=== PATIENT | male | born 1995 | race Two or more races ===

== ENCOUNTER 2024-12-08 09:04 | Emergency (ER) | payer OTHER, SELFPAY ==
--- OUTSIDE RECORDS SUMMARY | 2024-12-08 09:06 | XMS_ITS | Clinical Summary ---
Author Organization [facility] Address [address] [place] [id number] Care Team Providers Care It Field Technician Name Role Phone No Ref-Primary, Physician Primary Care Provider Allergies No known active allergies Medications ibuprofen (ADVIL/MOTRIN) 200 MG tablet Take 200 mg by mouth every 4 hours as needed for mild pain Active amphetamine-dex troamphetamine (ADDERALL XR) 20 MG 24 hr capsule TAKE 2 CAPSULES BY MOUTH EVERY DAY 08/03/2020 Active Immunizations Immunization Administration Dates Next Due BCG-Tuberculosis 01/17/1995 COVID-19 Monovalent 18+ (Moderna) 11/08/2020,01/2021 DTaP, Unspecified 12/01/2011, 6,02/05/1995,11/08,1994 HepA, Unspecified 03/22/2007,07/07/2000 HepB, Unspecified 07/29/2002,09/09/2001,07/06/19 01 Influenza Vaccine >6 months,quad, PF 05/15/2020 Influenza Vaccine, 6+MO IM (QUADRIVALENT W/PRESERVATIVES) 06/05/2019 MMR (MMRII) 07/07/2001,05/01/1999 Meningococcal ACWY (Menactra ) 12/09/2011 Poliovirus, inactivated (IPV) 08/28/2011 ,12/27/1997,08/29/1995,02/05,1994 Td,adult,historic,unspecified 03/22/2007 Varicella (Varivax) 12/09/2011,06/06/2004 Social History Tobacco Use Types Packs/Day Years Used Date Smoking Tobacco: Never Smokeless Tobacco: Never Adolescent Education Answer Date Record ed Getting School Help Needed Not on file 03/27 Sex and Gender Information Value Date Recorded Sex Assigned at Not on file Legal Sex Male 6:[address] Gender Identity Not on file Sexual Orientation Not on file Last Filed Vital Signs Vital Sign Reading Time Taken Comments Blood Pressure 118/60 12/21/2020 12:01 PM CDT Pulse 75 12/21/2020 12:01 PM CDT Temperature 37.1 C (98.7 F) 12/21/2020 12:01 PM CDT Respiratory Rate 14 08/19/2019 7:[address] Oxygen Saturation 99% 12/21/2020 12:01 PM CDT Inhaled Oxygen Concentration - - Weight 81.6 kg (180 lb) 12/21/2020 12:01 PM CDT Height 180.3 cm (5' 11) 08/19/2019 7:[address] Body Mass Index 25.1 08/19/2019 7:[address] Plan of Treatment Health Maintenance Due Date Last Done Comments ADVANCE CARE PLANNING 1994 ANNUAL REVIEW OF HM ORDERS 1994 YEARLY PREVENTIVE VISIT 1997 DTAP/TDAP/TD VACCINE (7 - Tdap) 11/30/2021 12/01/2011, 03/22/2007, 01/01/1996, Additional history exists COVID-19 VACCINE ( season) 2024 11/08/2020, 10/10/2020 PHQ-2 (once per calendar year) 2024 INFLUENZA VACCINE (Season Ended) 2025 05/15/2020, 06/05/2019 ZOSTER VACCINE (1 of 2) 2044 HEPATITIS B VACCINE Completed 07/29/2002, 09/09/2001, 07/06/2000 MENINGITIS VACCINE Completed 12/09/2011 HEPATITIS C SCREENING Completed 05/15/2020 HIV SCREENING Completed 05/15/2020 HPV VACCINE Aged Out No longer eligi ble based on patient's age to complete this topic PNEUMOCOCCAL VACCINE: PEDIATRICS (0 to 5 YEARS) AND AT-RISK PATIENTS (6 to 49 YEARS) Aged Out No longer eligible based on patient's age to complete this topic Insurance MED[employer] CHOICE Care Teams It Field Technician Relationship Specialty Start Date End Date No Ref-Primary, Physician PCP - General 08/19/19
--- OUTSIDE RECORDS SUMMARY | 2024-12-08 09:06 | XMS_ITS | Encounter Summary ---
Author Organization [facility] Address [address] [place] [address] Care Team Providers Care Gut Snatcher Name Role Phone No Primary/Referring, Phy Primary Care Provider Unavailable Encounter Details Date Type Department Care Team (Late st Contact Info) Description 05/03/2018 Correspondence None No Primary/Referring, Phy DME EQUIPMENT PROOF OF DELIVERY Social History Tobacco Use Types Packs/Day Years Used Date Smoking Tobacco: Never Smokeless Tobacco: Never Alcohol Use Standard Drinks/Week Comments Yes 0 (1 standard drink = 0.6 oz pur e alcohol) socially Sex and Gender Information Value Date Recorded Sex Assigned at Not on file Legal Sex Male 10:42 AM CDT Gender Identity Not on file Sexual Orientation Not on file documented as of this encounter Plan of Treatment Not on file documented as of this encounter Visit Diagnoses Not on filedocumented in this encounter Care Teams Gut Snatcher Relationship Specialty Start Date End Date No Primary/Referring, Phy PCP - General 08/25/18 documented as of this encounter
--- OUTSIDE RECORDS SUMMARY | 2024-12-08 09:06 | XMS_ITS | Clinical Summary ---
Author Organization [facility] Address [address] [place] [address] Care Team Providers Care Stonemason Apprentice Name Role Phone No Primary/Referring, Phy Primary Care Provider Unavailable Source Comments You are receiving this document as you are listed as the primary care provider,follow-up provider, or the patient has been referred to you for consultation.This is in compliance with the Medicare and[facility] EHR Incentive Program,which states Providers who transition their patient to another setting of careor provider of care or refers their patient to another provider of care shouldprovide summary care record for each transition of care or referral. [facility] Allergies No known active allergies Medications acetaminophen (TYLENOL) 500 MG tablet Take 1 Tablet by mouth every 4 hours. Take every 4 hours for 3 days, then as needed. 100 Tablet 08/31/2018 Active ibuprofen (MOTRIN) 200 MG tablet Take 3 Tablets by mouth every 6 hours. Take every 6 hours for 3 days, then as needed. 100 Tablet 08/31/2018 Active Social History Tobacco Use Types Packs/Day Years [...] Sign Reading Time Taken Comments Blood Pressure 123/74 08/31/2018 2:20 PM MEASURING MACHINE OPERATOR Pulse 74 08/31/2018 2:20 PM MEASURING MACHINE OPERATOR Temperature 36.9 C (98.5 F) 08/31/2018 2:20 PM MEASURING MACHINE OPERATOR Respiratory Rate 16 08/31/2018 2:20 PM MEASURING MACHINE OPERATOR Oxygen Saturation 96% 08/31/2018 2:20 PM MEASURING MACHINE OPERATOR Inhaled Oxygen Concentration - - Weight 85.3 kg (188 lb) 08/31/2018 8:35 AM MEASURING MACHINE OPERATOR Height 177.8 cm (5' 10) 08/31/2018 8:35 AM MEASURING MACHINE OPERATOR Body Mass Index 26.98 08/31/2018 8:35 AM MEASURING MACHINE OPERATOR Plan of Treatment Health Maintenance Due Date Last Done Comments Hep C Screening (Preventive Services) 1994 Tuberculosis Screening 1994 HIV Screening (Preventive Services) 2010 Adult Preventive Visit 2012 HepB Vaccine (1) 2013 DTaP/Tdap/Td Vaccine (7 - Tdap) 11/30/2021 12/01/2011, 03/22/2007, 01/01/1996, Additional history exists COVID-19 Vaccine ( season) 2024 11/08/2020, 10/10/2020 Influenza Vaccine (Season Ended) 2025 05/15/2020, 06/05/2019 Zoster/Shingles Vaccine (1 of 2) 2044 HepA Vaccine Completed 03/22/2007, 07/07/2000 IPV (Polio) Vaccine Completed 08/28/2011, 12/27/1997, 08/29/1995, Additional history exists MCV4 Vaccine Completed 12/09/2011 HPV Vaccine Aged Out No longer eligi ble based on patient's age to complete this topic Hib Vaccine Aged Out No longer eligi ble based on patient's age to complete this topic Meningococcal B Vaccine Aged Out No l onger eligible based on patient's age to complete this topic Pneumococcal Vaccine Aged Out No long er eligible based on patient's age to complete this topic Medical Devices Implanted Type Area Design Teacher Device Identifier Shelf Expiration Date Model / Serial / Lot Scr Joselyn Interfr Sheath 7.0x20 - [id number] Implanted:Qty: 1 on 08/31/2018 by Juan Jose Moya MD at [facility] Left: [employer] 03/05/2023 AR-[id number] / 0 / [id number] Stephanie Alves Interfr 8.0x20 F-Thrd - [id number] Implanted:Qty: 1 on 08/31/2018 by Juan Jose Moya MD at [facility] Left: [employer] 04/04/2023 AR-[id number] / 0 / [id number] Advance Directives * Full Code (Latest Code Status on File) Date Activated Date Inactivated Comments 08/31/2018 11:39 AM 08/31/2018 5:06 PM Full code i n effect for 30 days Care Teams Stonemason Apprentice Relationship Specialty Start Date End Date No Primary/Referring, Phy PCP - General 08/25/18
--- OUTSIDE RECORDS SUMMARY | 2024-12-08 09:06 | XMS_ITS | Encounter Summary ---
Author Organization [facility] Address [address] [place] [address] Care Team Providers Care Produce Assistant Name Role Phone No Primary/Referring, Rg Primary Care Provider Unavailable Encounter Details Date Type Department Care Team (Late st Contact Info) Description 05/25/2018 Correspondence [facility] Radiology [address] [place] [id number] Radiology, Provider MRI SAFETY SHEET AND COMPATIBILITY FORM Social History Tobacco Use Types Packs/Day Years [...] on filedocumented in this encounter Care Teams Produce Assistant Relationship Specialty Start Date End Date No Primary/ReferringRg PCP - General 08/25/18 documented as of this encounter
--- OUTSIDE RECORDS SUMMARY | 2024-12-08 09:06 | XMS_ITS | Encounter Summary ---
Author Organization [facility] Address [address] [place] [address] Care Team Providers Care Washing Tub Operator Name Role Phone No Primary/Referring, Phy Primary Care Provider Unavailable Encounter Details Date Type Department Care Team (Late st Contact Info) Description 05/03/2018 Correspondence None No Primary/Referring, Phy MEDICAL EQUIPMENT PROOF OF DELIVERY Social History Tobacco [...] on filedocumented in this encounter Care Teams Washing Tub Operator Relationship Specialty Start Date End Date No Primary/Referring, Phy PCP - General 08/25/18 documented as of this encounter
[2024-12-08 09:12] VITALS: BP 126/82; PULSE 91; RESP 18; TEMP 37.7; O2SAT 98; BMI 25.9
--- NOTE | 2024-12-08 09:16 | ED.GENADULT ---
HPI - General Adult General Time Seen by Provider: 09:16 Date Seen: 12/08/24 Chief complaint: Fever Stated complaint: urgent care sent him over here Time Seen by Provider: 12/08/24 09:06 Source: patient and RN notes reviewed Mode of arrival: ambulatory Limitations: no limitations History of Present Illness HPI narrative: This 29-year-old male was referred to the ER from urgent care for concern of fevers, chills, body aches, headache and nausea and vomiting beginning on Thursday. He states it started with a little sniffle, does not have any cough. He does smoke THC daily but has never had any symptoms like this. 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 He has had no travel. He did have a little diarrhea this morning. He really has not had any oral intake since Thursday. Urgent care noted that he had some palpable abdominal tenderness and referred him on here. He has been vomiting reportedly 10-15 times a day. He has had no prior abdominal surgeries, otherwise healthy. No alcohol use. He at the end did state that he has had significant sore throat with this. Patient is a heterosexual male without any concern of history of STIs. Related Data Previous Rx's ?Medication ?Instructions ?Recorded ondansetron 4 mg disintegrating 4 mg PO TID PRN nausea #10 tabs 12/08/24 tablet Allergies Allergy/AdvReac Type Severity Reaction Status Date / Time No Known Drug Allergies Allergy Verified 12/08/24 10:42 Review of Systems Status of ROS: Reports: 6 or more systems reviewed and unremarkable except as noted in History and below PFSH PFS Social History Smoking Status: Current every day smoker Do you use any of these nicotine containing products: Vaping Products How often do you have a drink containing alcohol: never AUDIT-C Alcohol total score: 0 Non-prescribed substance use: marijuana (any form) Exam Const: Vital Signs, click to edit/add: Vital Signs - 24 hr 12/08/24 09:12 12/08/24 09:31 12/08/24 11:07 Temperature 99.9 F H Pulse Rate [Pulse Oximeter] 91 87 Respiratory Rate 18 18 Blood Pressure [Ri ght Upper Arm] 126/82 118/82 Pulse Oximetry 98 95 97 Oxygen Delivery Me thod Room Air Room Air This 29-year-old male is alert, interactive, no apparent distress but looks like he does not feel well. Sclera clear, symmetrical facial function. Oropharynx dry mucosa, tonsils are about 1 to 2+, mild erythema but no exudates, still with good oral airway. Speech is normal. Neck supple, no palpable masses. Lungs are clear, good air entry, no wheezing or crackles, no tachypnea, no accessory muscle use. CV regular rate and rhythm, no murmur, normal S1-S2, no S3-S4. Abdomen is soft but he definitely has epigastric tenderness with some rebounding, no guarding, no palpable masses. Skin visualized without any rash. Documenting provider has reviewed patient's vital signs: yes Course Course ED Course: This patient certainly seems to have a constellation of symptoms suggestive of pattern of illness with considerations for influenza, strep, COVID being considered. Given his significant abdominal discomfort on examination, do think I would recommend CT scan with IV contrast. Will give him some IV fluids as he has not had good intake through this illness. Will also give him some Zofran. Will do full complement of labs as well. This really points to infectious etiology, certainly could be viral. Reevaluation(s) Time of Reevaluation #1: 10:33 Reevaluation #1: Patient's potassium is mildly low at 3.1, likely from reported GI losses from vomiting. Rest of his labs look reassuring pending C reactive protein. Awaiting CT report port from a Radiology. Will give patient some IV replacement of potassium. Time of Reevaluation #2: 11:01 Reevaluation #2: Patient is feeling a bit better after the IV fluids. Reviewed normal CT imaging of his pelvis. We reviewed his labs are all normal minus the potassium, reviewed likely GI losses from vomiting causing this. He is getting potassium supplementation. The IV potassium was bothering him some, slowing the infusion down has helped. We also reviewed that his CRP is significantly elevated. He was at the [place] on Thursday, did bring up possibility of tick exposure. They never found tick on him and did look when he started to develop fevers that night. Reviewed with him that it would be extremely unusual to have a tick exposure and develops symptoms of tick illness the same day. Time of Reevaluation #3: 12:42 Reevaluation #3: Have re-evaluated with patient. His headache is better, still has some sore throat but is able to swallow. He has some left-sided neck pain, it is along the border of the left trapezius muscle, hurts to turn his head to the left but otherwise can talk is chin, turn to the right without any difficulty. Seems to be an isolated muscle issue likely associated with viral etiology. Have reviewed his labs with him. We will see if we can get him a clinic recheck tomorrow. Have discussed with him that I think he has something infectious in seems to be pointing to viral at this point. We will send him with Bridget for symptom control but he should have a low threshold for re-evaluation. Vital Signs Vital signs: Initial Vital Signs Temperature 99.9 F H 12/08/24 09:12 Temperature Source Temporal Artery Scan 12/08/24 09:12 Pulse Rate 91 12/08/24 09:12 Respiratory Rate 18 12/08/24 09:12 Blood Pressure 126/82 12/08/24 09:12 Blood Pressure Mean 96 12/08/24 09:12 Pulse Oximetry 98 12/08/24 09:12 Oxygen Delivery Method Room Air 12/08/24 09:12 Vital Signs Temperature 99.9 F H 12/08/24 09:12 Pulse Rate 91 12/08/24 09:12 Respiratory Rate 18 12/08/24 09:12 Blood Pressure 126/82 12/08/24 09:12 Pulse Oximetry 98 12/08/24 09:12 Oxygen Delivery Method Room Air 12/08/24 09:12 Temperature 99.9 F H 12/08/24 09:12 Pulse Rate 87 12/08/24 11:07 Respiratory Rate 18 12/08/24 11:07 Blood Pressure 118/82 12/08/24 11:07 Pulse Oximetry 97 12/08/24 11:07 Oxygen Delivery Method Room Air 12/08/24 11:07 Medications Administered Medications: Discontinued Medications Generic Name Dose Route Start Last Admin Trade Name Freq PRN Reason Stop Dose Admin Sodium Chloride 1,000 mls @ 1,000 mls/hr 12/08/24 09:32 12/08/24 11:10 0.9 % Sodium Chloride 1000 Ml IV 12/08/24 10:31 Infused .Q1H VADIM Infusion Potassium Chloride 10 meq in 100 mls @ 100 mls/hr 12/08/24 10:45 12/08/24 13:36 Potassium Chloride IVPB 12/08/24 13:14 Infused Q90M VADIM Infusion Sodium Chloride 1,000 mls @ 500 mls/hr 12/08/24 11:21 12/08/24 13:35 0.9 % Sodium Chloride 1000 Ml IV 12/08/24 13:20 Infused .Q2H VADIM Infusion Ketorolac Tromethamine 15 mg 12/08/24 13:08 12/08/24 13:08 Ketorolac 15 Mg/Ml Inj IVP 12/08/24 13:09 15 mg ONCE ONE Administration Ondansetron HCl 4 mg 12/08/24 09:30 12/08/24 10:59 Ondansetron 2 Mg/Ml Inj IVP 12/08/24 09:31 4 mg ONCE ONE Administration Medical Decision Making Lab Data Labs: Lab Results 12/08/24 12/08/24 12/08/24 Range/Units 09:18 09:45 10:45 WBC 7.89 (4.50-11.00) K/uL RBC 5.51 (4.30-5.90) m/uL Hgb 15.7 (13.5-17.5) gm/dL Hct 44.8 (37.0-53.0) % MCV 81 (80-100) fL MCH 29 (26-34) pg MCHC 35 (32-36) gm/dL RDW Coeff of Jax 11.5 (11.5-15.5) % Plt Count 201 (140-440) K/uL Neut % (Auto) 77.2 H (42.0-72.0) % Lymph % (Auto) 9.3 L (20-44) % [place] % (Auto) 13.1 H (0.0-11.0) % Eos % (Auto) 0.0 (0.0-7.0) % Baso % (Auto) 0.1 (0.0-3.0) % Neut # (Auto) 6.10 (1.7-7.0) K/uL Lymph # (Auto) 0.70 L (0.90-2.90) K/uL [place] # (Auto) 1.00 H (0.00-0.90) K/UL Eos # (Auto) 0.00 (0.00-0.50) K/uL Baso # (Auto) 0.01 (0.00-0.30) K/uL Abs Immat Gran (auto) 0.02 (0.00-0.30) K/uL Imm/Tot Granulo (auto) 0.3 % Sodium 135 (135-149) mmol/L Potassium 3.1 L (3.6-5.1) mmol/L Chloride 97 (96-114) mmol/L Carbon Dioxide 25 (20-32) mmol/L Anion Gap 13 (7-15) mEq/L BUN 13 (5-24) mg/dL Creatinine 1.0 (0.5-1.5) mg/dL Estimated Creat Clear 115.04 Estimated GFR 104 ml/min Glucose 123 H (60-115) mg/dL Lactate 1.4 (0.5-1.9) mmol/L Calcium 9.0 (8.4-10.6) mg/dL Total Bilirubin 1.0 (0.1-1.5) mg/dL AST 32 (12-35) U/L ALT 45 (4-50) U/L Alkaline Phosphatase 91 (40-150) U/L C-Reactive Protein 12.6 H (0.5-1.0) mg/dL Total Protein 8.7 H (6.0-8.3) g/dL Albumin 4.8 (3.3-5.0) g/dL Lipase 73 (23-300) U/L Procalcitonin 0.13 (<0.50) ng/mL SARS-CoV-2 (PCR) Negative SARS-CoV-2 (Negative) Monoscreen Negative (Negative) Influenza Type A (PCR) Negative PCR FLU A (Negative) Influenza Type B (PCR) Negative PCR FLU B (Negative) RSV (PCR) Negative PCR RSV (Negative) Group A Strep DNA NOT DETECTED (Not Detectd) Lab Acknowledgement Test Added 12/08/24 Range/Units 11:00 WBC (4.50-11.00) K/uL RBC (4.30-5.90) m/uL Hgb (13.5-17.5) gm/dL Hct (37.0-53.0) % MCV (80-100) fL MCH (26-34) pg MCHC (32-36) gm/dL RDW Coeff of Jax (11.5-15.5) % Plt Count (140-440) K/uL Neut % (Auto) (42.0-72.0) % Lymph % (Auto) (20-44) % [place] % (Auto) (0.0-11.0) % Eos % (Auto) (0.0-7.0) % Baso % (Auto) (0.0-3.0) % Neut # (Auto) (1.7-7.0) K/uL Lymph # (Auto) (0.90-2.90) K/uL [place] # (Auto) (0.00-0.90) K/UL Eos # (Auto) (0.00-0.50) K/uL Baso # (Auto) (0.00-0.30) K/uL Abs Immat Gran (auto) (0.00-0.30) K/uL Imm/Tot Granulo (auto) % Sodium (135-149) mmol/L Potassium (3.6-5.1) mmol/L Chloride (96-114) mmol/L Carbon Dioxide (20-32) mmol/L Anion Gap (7-15) mEq/L BUN (5-24) mg/dL Creatinine (0.5-1.5) mg/dL Estimated Creat Clear Estimated GFR ml/min Glucose (60-115) mg/dL Lactate (0.5-1.9) mmol/L Calcium (8.4-10.6) mg/dL Total Bilirubin (0.1-1.5) mg/dL AST (12-35) U/L ALT (4-50) U/L Alkaline Phosphatase (40-150) U/L C-Reactive Protein (0.5-1.0) mg/dL Total Protein (6.0-8.3) g/dL Albumin (3.3-5.0) g/dL Lipase (23-300) U/L Procalcitonin (<0.50) ng/mL SARS-CoV-2 (PCR) (Negative) Monoscreen (Negative) Influenza Type A (PCR) (Negative) Influenza Type B (PCR) (Negative) RSV (PCR) (Negative) Group A Strep DNA (Not Detectd) Lab Acknowledgement Test Added Imaging Data CT scan - abdomen: Attestation: I have reviewed the pertinent imaging results. Radiologist's impression: Patient: PRICILLA WILLETT Facility:[facility] Patient ID:?[id number] Site Patient ID:?[id number]. Site :?[id number] Study:?CT-Abdomen/Pelvis 91 CC ISOVUE 370-12/08/2024 10:27:25 AM Ordering Physician:Ashley Cruz Final Report: INDICATION: Epigastric pain, nausea and vomiting. TECHNIQUE: CT abdomen and pelvis acquired with 91 cc Isovue 370 IV contrast. COMPARISON: None. FINDINGS: Lower chest: Unremarkable. Liver: Normal in size and attenuation. No suspicious masses. Gallbladder and bile ducts: No stones or inflammation. No biliary dilatation. Pancreas: No mass or inflammation. Spleen: Normal in size. No masses. Adrenal glands: No suspicious mass. Kidneys: Bilateral kidneys are normal in size with symmetric enhancement. No nephrolithiasis or hydronephrosis. GI tract: No findings of bowel obstruction. Normal appendix. Vasculature: Abdominal aorta is normal in caliber. Lymph nodes: No lymphadenopathy. Peritoneum/Abdominal Wall: No free air or significant free fluid. Pelvis: Unremarkable. Bones: Unremarkable for age. IMPRESSION: No acute abnormality in the abdomen and pelvis. Please note that all CT scans at this facility use dose modulation, iterative reconstruction, and/or weight-based dosing when appropriate to reduce radiation dose to as low as reasonably achievable. Dictated by Joanna Weiss MD @ 12/08/2024 10:39:18 AM (Electronic Signature) Discharge Plan Discharge Clinical Impression: Acute viral syndrome Patient Disposition: Home, Self-Care Condition: Stable Additional Instructions: Appointment is scheduled tomorrow, at the [facility], at 2:45PM with Dr. Moss. [address] [place] [id number] Need to go to the follow-up appointment that was scheduled. Zofran from [facility] has been prescribed, 10 tablets, take as prescribed. Use this for any ongoing nausea and vomiting. Try to take in small sips of fluids every 5-10 minutes while awake. As you feel improved, can increase her diet as tolerated. If it any point you feel you are worsening, have new or concerning symptoms, are not improving over the next 3-5 days, do need to be re-evaluated. Activity Level: Activity as Tolerated Prescriptions: New ondansetron 4 mg tablet,disintegrating 4 mg PO TID PRN (Reason: nausea) Qty: 10 0RF Follow Up/Referrals: Provider,Not a Local [Primary Care Provider, Family Practice] Stand Alone Forms: [facility] Info Instructions
[2024-12-08 09:31] VITALS: O2SAT 95
--- NOTE | 2024-12-08 09:31 | CRLHL7_ITS ---
For Patients: As a result of the Century Cures Act, medical imaging exams and procedure reports are released immediately into your electronic medical record. You may view this report before your referring provider. If you have questions, please contact your health care provider. INDICATION: Epigastric pain, nausea and vomiting. TECHNIQUE: CT abdomen and pelvis acquired with 91 cc Isovue 370 IV contrast. COMPARISON: None. FINDINGS: Lower chest: Unremarkable. Liver: Normal in size and attenuation. No suspicious masses. Gallbladder and bile ducts: No stones or inflammation. No biliary dilatation. Pancreas: No mass or inflammation. Spleen: Normal in size. No masses. Adrenal glands: No suspicious mass. Kidneys: Bilateral kidneys are normal in size with symmetric enhancement. No nephrolithiasis or hydronephrosis. GI tract: No findings of bowel obstruction. Normal appendix. Vasculature: Abdominal aorta is normal in caliber. Lymph nodes: No lymphadenopathy. Peritoneum/Abdominal Wall: No free air or significant free fluid. Pelvis: Unremarkable. Bones: Unremarkable for age. IMPRESSION: No acute abnormality in the abdomen and pelvis. Please note that all CT scans at this facility use dose modulation, iterative reconstruction, and/or weight-based dosing when appropriate to reduce radiation dose to as low as reasonably achievable. Dictated by Joanna Weiss MD @ 12/08/2024 10:39:18 AM (Electronically Signed)
[2024-12-08] MEDS: 0.9 % SODIUM CHLORIDE 1000 ml 1,000 ML IV (09:48)
--- OUTSIDE RECORDS SUMMARY | 2024-12-08 09:52 | XMS_ITS | Clinical Summary ---
Author Organization 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 0 04/03/2011 Active cetirizine 10 mg tabletIndicatio ns:Pain of maxillary sinus,Congestio n of nasal sinus,Sinus pressure,Post-n latricia drip,History of sinusitis,Acute non-recurrent maxillary sinusitis Take 1 Tablet (10 mg) by mouth once daily. 30 Tablet 10/22/2024 Active Problems Problem Noted Date Diagnosed Date Sprain of medial collateral ligament of knee 06/2011 Encounters Date Type Department Care Team Description 10/22/2024 3:20 PM CDT Ancillary Procedure [address] [phone] 10/22/2024 2:55 PM CDT Office Visit [facility] [address] [place] [phone] Rodrick Franco PA Sinus Problem; Cough; Headache 10/22/2024 Travel from Last 3 Months Immunizations Immunization Administration Dates Next Due Influenza, IIV4 05/15/2020 Social History Tobacco Use Types Packs/Day Years Used Date Smoking Tobacco: Never Smokeless Tobacco: Never Tobacco Cessation:Counseling Given: Yes Alcohol Use Standard Drinks/Week Comments Yes 0 (1 standard drink = 0.6 oz pur e alcohol) PHQ-2 Answer Date Recorded PHQ-2 TOTAL SCORE 0 05/15/2020 Social Connections Answer Date Recorded Frequency of Communication with Friends and Fami ly Not on file 07/06/2021 Financial Resource Strain Answer Date R ecorded Difficulty of Paying Living Expenses Not on file 07/06/2021 Difficulty of Paying Living Expenses Not on file 07/06/2021 Sex and Gender Information Value Date Recorded Sex Assigned at Not on file Legal Sex Male 8:14 AM [employer] Gender Identity Not on file Sexual Orientation Not on file Obstetrics History Last Filed Vital Signs Vital Sign Reading Time Taken Comments Blood Pressure 112/62 10/22/2024 3:02 PM CDT Pulse 86 10/22/2024 3:02 PM CDT Temperature 37.2 C (98.9 F) 10/22/2024 3:02 PM CDT Respiratory Rate 18 10/22/2024 3:02 PM CDT Oxygen Saturation 97% 10/22/2024 3:02 PM CDT Inhaled Oxygen Concentration - - Weight 86.6 kg (191 lb) 10/22/2024 3:02 PM CDT Height 177.8 cm (5' 10) 05/15/2020 3:52 PM [employer]GER [employer] Body Mass Index 27.41 05/15/2020 3:52 PM [employer]GER [employer] Plan of Treatment Health Maintenance Due Date Last Done Comments Tdap 2005 Hepatitis B series for 19+ ( 1 of 3 - 19+ 3-dose series) 2013 Tetanus booster 2014 BMI (ht and wt on same day) for age 18+ 05/15/2021 05/15/2020 Depression screening for age 12+ 05/17/2021 05/17/2020, 05/16/2020, 05/15/2020 COVID-19 vaccine series ( season) 2024 Influenza Vaccine (Season Ended) 2025 05/15/2020 HIV for age 15-65 Completed 05/15/2020 Hepatitis C screening for ag e 18-79 Completed 05/15/2020 Pneumococcal series for age 6-49 Aged Out No longer eligible b ased on patient's age to complete this topic Procedures Procedure Name Priority Date/Time Associated Diagnosis Comments XR SINUS PARANASAL MINIMUM 3 VIEWS STAT 10/22/2024 3:20 PM CDT Pain of maxillary sinus Congestion of nasal sinus Sinus pressure Post-nasal drip History of sinusitis ANTI HIV 1/2 Routine 05/15/2020 4:29 PM [employer] Screen for STD (sexually transmitted disease) ANTI HCV Routine 05/15/2020 4:29 PM [employer]GER [employer] Screen for STD (sexually transmitted disease) from Last 3 Months or Most Recently Relevant to Health Maintenance Results * XR SINUS PARANASAL MINIMUM 3 VIEWS (10/22/2024 3:20 PM CDT) Anatomical Region Laterality Modality SINUS Computed Radiogr aphy 10/22/2024 3:44 PM CDT Impressions 10/22/2024 3:44 PM CDT Right maxillary sinus air-fluid level with near complete opacification of the right maxillary sinus consistent with acute sinusitis in the correct clinical setting. Left maxillary sinus mucosal thickening. Dictated by Josh Young MD @ 10/22/2024 3:44:21 PM (Electronically Signed) Narrative 10/22/2024 3:44 PM CDT For Patients: As a result of the Cures Act, medical imaging exams and procedure reports are released immediately into your electronic medical record. You may view this report before your referring provider. If you have questions, please contact your health care provider. INDICATION: J34.89 Pain of maxillary sinus ICD-10-CM Pain of maxillary sinus R09.81 Congestion of nasal sinus ICD-10-CM Congestion of nasal sinus J34.89 Sinus pressure ICD-10-CM Sinus pressure R09.82 Post-nasal drip ICD-10-CM Post-nasal drip Z87.09 History of sinusitis ICD-10-CM History of sinusitis Pain of maxillary sinus (Sic) COMPARISON: None available. TECHNIQUE: Four views of the paranasal sinuses. FINDINGS: Near-complete opacification of the right maxillary sinus with an air-fluid level consistent with acute sinusitis in the correct clinical setting. Asymmetrical lateral mucosal thickening of the left maxillary sinus. Frontal, ethmoid and sphenoid sinuses are grossly clear on this radiographic study (CT is more sensitive for detection of paranasal sinus pathology). The right frontal sinus is underpneumatized. Procedure Note Josh Young MD - 10/22/2024 For Patients: As a result of the Century Cures Act, medical imagingexams and procedure reports are released immediately into your electronicmedical record. You may view this report before your referring provider.If you have questions, please contact your health care provider. INDICATION: J34.89 Pain of maxillary sinus ICD-10-CM Pain of maxillary sinus R09.81 Congestion of nasal sinus ICD-10-CM Congestion of nasal sinus J34.89 Sinus pressure ICD-10-CM Sinus pressure R09.82 Post-nasal drip ICD-10-CM Post-nasal drip Z87.09 History of sinusitis ICD-10-CM History of sinusitis Pain of maxillary sinus (Sic) COMPARISON: None available. TECHNIQUE: Four views of the paranasal sinuses. FINDINGS: Near-complete opacification of the right maxillary sinus with an air-fluidlevel consistent with acute sinusitis in the correct clinical setting.Asymmetrical lateral mucosal thickening of the left maxillary sinus. Frontal, ethmoid and sphenoid sinuses are grossly clear on thisradiographic study (CT is more sensitive for detection of paranasal sinuspathology). The right frontal sinus is underpneumatized. IMPRESSION: Right maxillary sinus air-fluid level with near complete opacification ofthe right maxillary sinus consistent with acute sinusitis in the correctclinical setting. Left maxillary sinus mucosal thickening. Dictated by Josh Young MD @ 10/22/2024 3:44:21 PM (Electronically Signed) us Rodrick Martinez [facility] Final Result * ANTI HCV (05/15/2020 4:29 PM MANAGER [employer]MENT) HEPATITIS C ANTIBODY Non-React elyse Non-React elyse 05/16/2020 3:14 PM MANAGER INVESTMENT [facility] Comment:Antibodies to HCV no t detected; does not exclude the possibility of exposure to HCV. Blood BLOOD SPECIMEN / Unknown Venipuncture / Unknown 05/15/2020 4:29 PM [employer]GER [employer]MENT 05/15/2020 4:32 PM MANAGER INVESTMENT us Nilo Soto MD SEND OUTS Final Result [facility] [address] [place] [address], [place] * ANTI HIV 1/2 (05/15/2020 4:29 PM MANAGER [employer]MENT) HIV-1/HIV-2 ANTIBODY Non-Reacti ve Non-Reacti ve 05/16/2020 3:12 PM MANAGER INVESTMENT [facility] Comment:HIV-1 p24 and HIV-1/ HIV-2 Ab not detected. Blood BLOOD SPECIMEN / Unknown Venipuncture / Unknown 05/15/2020 4:29 PM MANAGER IN[employer]MENT 05/15/2020 4:32 PM MANAGER IN[employer]MENT Nilo Soto MD SEND OUTS Final Result [facility] 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 PCP - General 04/03/11
[2024-12-08 10:00] LABS: PCR FLU A Negative PCR FLU A (Negative); PCR FLU B Negative PCR FLU B (Negative); PCR RSV Negative PCR RSV (Negative); SARS PCR* Negative SARS-CoV-2 (Negative)
[2024-12-08 10:03] LABS: Basophils Absolute Auto 0.01 K/uL (0.00-0.30); Basophils Percent Auto 0.1 % (0.0-3.0); Hematocrit* 44.8 % (37.0-53.0); Hemoglobin* 15.7 gm/dL (13.5-17.5); Immature Granulocytes Abs Auto 0.02 K/uL (0.00-0.30); Immature Granulocytes Pct Auto 0.3 %; Lymphocytes Percent Auto 9.3 % (20-44); Mean Corpuscular HGB Conc 35 gm/dL (32-36); Mean Corpuscular Hemoglobin 29 pg (26-34); Mean Corpuscular Volume 81 fL (80-100); Monocytes Percent Auto 13.1 % (0.0-11.0); Neutrophils Percent Auto 77.2 % (42.0-72.0); Platelet Count* 201 K/uL (140-440); RDW Coefficient of Variation % 11.5 % (11.5-15.5); Red Blood Count* 5.51 m/uL (4.30-5.90); White Blood Count* 7.89 K/uL (4.50-11.00)
[2024-12-08 10:04] LABS: Lactate* 1.4 mmol/L (0.5-1.9)
[2024-12-08 10:06] LABS: Slide Review Reflex No
[2024-12-08 10:20] LABS: Albumin* 4.8 g/dL (3.3-5.0); Chloride* 97 mmol/L (96-114); Potassium* 3.1 mmol/L (3.6-5.1); Sodium* 135 mmol/L (135-149)
[2024-12-08 10:22] LABS: Blood Urea Nitrogen* 13 mg/dL (5-24); Est. Creatinine Clearance* 115.04; Estimated Glomerular Filt Rate 104 ml/min
[2024-12-08 10:23] LABS: Alanine Aminotransferase* 45 U/L (4-50); Alkaline Phosphatase* 91 U/L (40-150); Anion Gap 13 mEq/L (7-15); Aspartate Amino Transferase* 32 U/L (12-35); Carbon Dioxide* 25 mmol/L (20-32); Glucose* 123 mg/dL (60-115); Lipase* 73 U/L (23-300); Total Protein* 8.7 g/dL (6.0-8.3)
[2024-12-08 10:24] LABS: Strep A DNA Probe* NOT DETECTED (Not Detectd)
[2024-12-08 10:38] LABS: C Reactive Protein* 12.6 mg/dL (0.5-1.0)
[2024-12-08] MEDS: POTASSIUM CHLORIDE 10 MEQ/100 ML PIGGYBACK 100 MEQ IVPB ×2 (10:58→12:23)
[2024-12-08] MEDS: ONDANSETRON 2 MG/ML inj 4 MG IVP (10:59)
[2024-12-08 11:04] LABS: Mono Screen* Negative (Negative)
[2024-12-08 11:07] VITALS: BP 118/82; PULSE 87; RESP 18; O2SAT 97
[2024-12-08] MEDS: 0.9 % SODIUM CHLORIDE 1000 ml 1,000 ML 500 ML IV (11:24)
[2024-12-08 11:35] LABS: Procalcitonin* 0.13 ng/mL (<0.50)
[2024-12-08] MEDS: KETOROLAC 15 MG/ML inj IVP (13:08)
== END 2024-12-08 13:45 | disposition home or self-care (01) ==
PROVIDERS: Emergency Provider Family Medicine
DX: B34.9 Viral infection, unspecified (principal); R51.9 Headache, unspecified; R11.2 Nausea with vomiting, unspecified; R10.9 Unspecified abdominal pain; J02.9 Acute pharyngitis, unspecified; F12.90 Cannabis use, unspecified, uncomplicated
CPT/HCPCS: 36415; 74177; 80053; 83605; 83690; 84145; 85025; 86140; 86308; 87637; 87651; 94761; 96365; 96366; 96375; 99284; 99285; J1885; J2405; J3480; J7030; Q9967